=== PATIENT | female | born 1945 | race African-American/Black ===

== ENCOUNTER 2024-07-21 14:22 | Emergency (ER) | payer OTHER, MEDICAID ==
[~2024-07-21] VITALS: Ht 167.6 cm; Wt 68.0 kg
[~2024-07-21 14:22] MED LIST: AMLO5TAB4 PO; ASPI-986 PO; DIAZ2TAB PO; FERR-63 PO; HYDROCODONE PO; METH2.5T PO; NAPR500T7 PO; NIFE20CA8 PO; OXCA150T29 PO; Q-PAP PO; SIMV-43 PO; [UNRECOGNIZED DRUG - CODE] PO
[2024-07-21 14:23] VITALS: O2SAT 99
[2024-07-21 15:13] LABS: HEMATOCRIT. 35.3 % (36.0-48.0); HEMOGLOBIN. 11.9 g/dL (12.0-16.0); MEAN CORPUSCULAR HEMOGLOBIN 29.2 pg (28.0-32.0); MEAN CORPUSCULAR HGB CONC 33.8 g/dL (31.0-37.0); MEAN CORPUSCULAR VOLUME 86.4 fL (81.0-99.0); MEAN PLATELET VOLUME 10.8 fl (7.4-10.4); PLATELET 194 x1000/uL (130-400); RED BLOOD CELL COUNT 4.08 mill/uL (4.2-5.4); RED CELL DISTRIBUTION WIDTH 15.5 % (11.6-14.6); WHITE BLOOD COUNT 6.6 x1000/uL (4.5-11.0)
[2024-07-21] MEDS: METOCLOPRAMIDE HCL 10MG/2ML VIAL IV ONE (15:14)
[2024-07-21 15:16] LABS: DIFFERENTIAL COMMENT 1
[2024-07-21 15:18] LABS: CHLORIDE 110 mEq/L (98-107); POTASSIUM 3.5 mEq/L (3.5-5.1); SODIUM 142 mEq/L (136-145)
[2024-07-21 15:19] LABS: CARBON DIOXIDE 27 mEq/L (21-32)
[2024-07-21 15:20] LABS: CALCIUM 10.1 mg/dL (8.7-10.4)
[2024-07-21 15:24] LABS: CREATININE 1.1 mg/dL (0.6-1.0); GLUCOSE 104 mg/dL (70-105)
[2024-07-21 15:25] LABS: UREA NITROGEN BLOOD 16 mg/dL (9-23)
[2024-07-21 15:26] LABS: ETHANOL BLOOD < 10 mg/dL (<10)
[2024-07-21 17:44] VITALS: BP 105/63; PULSE 66; RESP 20; TEMP 36.89184; O2SAT 99
[2024-07-21 18:35] LABS: ANISOCYTOSIS 1+; PLATELET ESTIMATE NORMAL
== END 2024-07-21 17:50 | disposition home or self-care (01) ==
LOC: ER 14:22
DX: R51.9 Headache, unspecified (principal); I10 Essential (primary) hypertension; G20.A1 Parkinson's disease without dyskinesia, without mention of fluctuations; Z79.899 Other long term (current) drug therapy; Z86.73 Personal history of transient ischemic attack (TIA), and cerebral infarction without residual deficits; Z88.0 Allergy status to penicillin; Z88.6 Allergy status to analgesic agent
CPT/HCPCS: 80048; 80320; 85025; 36415; 70450; 93005; 96374; 99285; J2765; G0480